=== PATIENT | male | born 1970 | race Caucasian/White ===

== ENCOUNTER 2016-09-20 12:01 | Emergency (ER) | payer BC, OTHER ==
[~2016-09-20] VITALS: Ht 175.3 cm; Wt 100.0 kg
[2016-09-20 12:32] VITALS: TEMP 36.5; Ht 175.3 cm; Wt 100.0 kg
--- NOTE | 2016-09-20 13:30 | DIAGNOSTIC IMAGING REPORT ---
LEFT KNEE 3 VIEWS CLINICAL HISTORY: left knee pain, anterior/lateral, dog ran into him trauma COMPARISON: None. DISCUSSION: Linear/cortical fracture lateral tibial plateau. Fracture extends to the articular services. All major osseous structures are unremarkable. Joint effusion is present. Patellofemoral joint is unremarkable. There is no evidence for soft tissue swelling. IMPRESSION: Vertical nondisplaced fracture lateral tibial plateau. Joint effusion. The above report was generated using voice recognition software. It may contain grammatical, syntax or spelling errors. Electronically signed by: Dorian Mayo M.D. 09/20/2016 1:29 PM Dictated Date/Time: 09/20/2016 1:28 PM
[2016-09-20] MEDS ORDERED: FENTANYL CITRATE INJ 50 MCG/1 ML 2 ML VIAL IV STA (13:45)
--- NOTE | 2016-09-20 14:24 | EMERGENCY ROOM VISIT NOTE ---
ED Visit Note First contact with patient: 12:49 CHIEF COMPLAINT: left knee pain HISTORY OF PRESENT ILLNESS: This 45-year-old male patient presents to the emergency department via EMS after sustaining an injury to the left knee. The patient states is 90 pound dog ran headfirst into his left knee from the side, and the patient reports hearing a popping sound. The patient states he pretty directly noticed a lump in the lateral knee, and began experiencing significant pain. The patient states he was able to lean against a wall, and slide down, however he was unable to bear weight or walk on the extremity. The patient contacted EMS, who was able to move him and get him to the emergency department. The patient denies any other injuries besides their knee. The patient does report swelling, but no bruising. There is pain on palpation of the lateral, posterior aspect of the knee. They rate the pain as constant, like a toothache and 3/10. The patient states they are not able to walk on it. No numbness or tingling. No previous injuries to this knee. No ankle, foot or hip pain. The patient did receive 50 g of fentanyl via IV prior to arrival from ALS provider. REVIEW OF SYSTEMS: A 6 system review of systems was completed with positives and pertinent negatives listed in the HPI. ALLERGIES: Etoposide MEDICATIONS: OTC Tylenol/ibuprofen PMH: Scratch fever, abscess of face, skull fracture, cancer SOCIAL HISTORY: Patient lives locally with his family. He currently smokes one to one and a half packs cigarettes per day. He denies drug or alcohol use. PHYSICAL EXAM: Vital Signs: Reviewed Nurse's notes, vital signs stable. GENERAL : 45-year-old male, no acute distress, but appears in pain, well-developed, well -nourished. MENTAL STATUS: Alert, oriented to person place and time, and cooperative. MUSCULOSKELETAL: The left knee is swollen. There is no ecchymosis. There is no joint effusion present. The patient is tender on the lateral, anterior, and posterior aspects of the knee. There is joint line tenderness. The patella does appropriately subluxate. Range of motion is full actively and passively, however flexion of the knee does cause increased discomfort. Strength of the quads and hamstrings is 5/5. Jackie's is negative. Yuki's and Anterior Drawer tests are negative. There is no discomfort or laxity with varus and valgus stressing. The foot and toes are warm and well- perfused. Dorsalis pedis pulse 2+. Sensation to pain and light touch is intact. Capillary refill less than 2 seconds. RADIOLOGY: X-Ray Left knee: DISCUSSION: Linear/cortical fracture lateral tibial plateau. Fracture extends to the articular services. All major osseous structures are unremarkable. Joint effusion is present. Patellofemoral joint is unremarkable. There is no evidence for soft tissue swelling. IMPRESSION: Vertical nondisplaced fracture lateral tibial plateau. Joint effusion. CT Scan Left knee: FINDINGS: Vertical fracture of the lateral tibial plateau. The fracture extends to the articular surface. Fracture extends from the anterior to posterior margin of the lateral tibial plateau. Lateral aspect of the fracture shows no evidence for depression. Maximum separation is 2 mm posteriorly. This progression is made to the anterior aspect of the tibial plateau there is a depressed component demonstrating a maximum depression of 4 mm. The depressed region measures 1.4 x 1.6 cm in maximum cross-sectional region. There is no extension to the tibial spines. A loose body within the joint is not appreciated. All remaining osseous structures are unremarkable. Joint effusion is present with a fat fluid level. IMPRESSION: 1. Vertical fracture lateral tibial plateau extending from the anterior to posterior margin of the tibial plateau. 2. Posterior aspect of the fracture demonstrates 2 mm of separation. 3. The anterior margin of the fracture demonstrates focal depression of 4 mm, with a cross-sectional area of depression of 1.4 x 1.6 cm. 4. No additional bony abnormality. 5. No significant loose bodies within the joint although the fracture is somewhat comminuted at its anterior aspect EMERGENCY DEPARTMENT COURSE: I examined the patient. X-rays of the left knee were reviewed by myself and read by radiology and reveal vertical, nondisplaced fracture of the lateral tibial plateau which extends to the articular surfaces. The patient was given a repeat dose of 50 g of fentanyl via IV at this time. I did discuss the case with Dr. Carter at approximately 13:55. He recommended CT scan to verify that the fracture is nondisplaced. He states we should place the patient in a knee immobilizer and advised him no weightbearing on the left extremity. He states he will follow up outpatient with the patient on Thursday. I did order CT scan and results are as described previously. Dr. Carter states CT scan will not alter the course of treatment at this time. The patient was placed in a knee immobilizer under my direction and the position was satisfactory. The patient was instructed on the use of crutches. The patient was discharged home in good condition. I did verify with PDMP prior to prescribing narcotics. The patient has no significant history over the past 3 years. I did receive a phone call from [facility] pharmacy in [place] after discharge the patient. They state they do not have record of the patient and the patient does not have medical insurance to pay for his narcotic prescription. They state they have a policy that they will not fill narcotic prescriptions in these cases. The patient did request prescription of OxyIR to be sent to [facility] in [place]. I did send this prescription. DIFFERENTIAL DIAGNOSIS: Patellar fracture, distal femur fracture, proximal tibia fracture, tibial plateau fracture, fibular fracture, sprain or strain of ligaments or tendons of the knee, knee contusion, and others. DIAGNOSIS: Left tibial plateau fracture DISCHARGE INSTRUCTIONS: ORTHOPEDIC INSTRUCTIONS: DO NOT drive, drink alcohol, operate machinery, or perform dangerous activities today. You were given medications in the ER that can affect your ability to safely function or operate a vehicle. Oxycodone (OxyIR) 5mg: Take 1-2 pills every four hours as needed for breakthrough pain. Avoid alcohol, operating machinery or dangerous equipment, working on ladders or roofs, DRIVING, or situations where being under the influence may be dangerous. It is recommended to use an [id number]-vopdlhu stool softener such as Colace, 100mg twice daily while taking this medication to avoid constipation. Ibuprofen(Motrin, Advil) may be used for fever or pain. Use 600mg every six hours as needed. Take with food. Avoid using more than 2400mg in a 24 hour period. Do not use 2400mg per day for more than three consecutive days without physician direction. Prolonged inappropriate use can lead to stomach upset or ulcers. (AND/OR) Acetaminophen(Tylenol) may be used for fever or pain. Use 1000mg every six hours as needed. Avoid using more than 4000mg in a 24 hour period. Ice compresses for 20 minutes at a time four times daily for 2-3 days. Use the crutches as instructed. NO WEIGHT BEARING UNTIL SEEN AND CLEARED BY ORTHOPEDICS. Rest and elevate your injury. Do not get the splint wet. If your splint feels excessively tight, you have worsening pain, develop numbness or tingling, or your digits appear blue, loosen the jonatan wrap. Then reapply the jonatan wrap gently without removing the splint. If your symptoms are not quickly relieved return to the ER for re- evaluation. Return to the ER immediately for any numbness, tingling, severe pain, extreme swelling in the extremity or as needed. Call [facility], [phone], on Thursday to arrange follow up for your injury. Follow-up with your primary care physician in 2 to 3 days for a recheck of your current condition. Problem List Medical Problems: (1) History of sinus cancer Status: Resolved Current/Historical Medications Scheduled PRN Oxycodone Ir (Roxicodone Ir), 1-2 TAB PO Q4-6H PRN for Pain Allergies Coded Allergies: Etoposide (Verified Allergy, Unknown, SHORTNESS OF BREATH, 09/20/14) Vital Signs Date Time Temp Pulse Resp B/P (MAP) Pulse Ox O2 Delivery O2 Flow Rate FiO2 09/20/16 15:44 84 18 120/64 94 09/20/16 13:58 70 109/71 94 Room Air 09/20/16 12:32 36.5 75 18 114/73 94 Room Air Medications Administered Medications (Trade) Dose Ordered Sig/Maki Route Start Time Stop Time Status Last Admin Dose Admin Fentanyl Citrate (Fentanyl Inj) 50 mcg NOW STAT IV 09/20/16 13:45 09/20/16 13:47 DC 09/20/16 13:57 50 MCG Departure Information Impression Primary Impression: Tibial plateau fracture, left Dispostion Home / Self-Care Condition GOOD Prescriptions Oxycodone Ir (Roxicodone Ir) 5 Mg Tab 1-2 TAB PO Q4-6H Y for Pain, #15 TAB For Initial Treatment Prov: Brit Hernandez PA-C 09/20/16 Referrals Andrea Hurtado D.O. (PCP) Matthew Carter M.D. Patient Instructions ED Fx Lower Ext, My [facility] Additional Instructions ORTHOPEDIC INSTRUCTIONS: DO NOT drive, drink alcohol, operate machinery, or perform dangerous activities today. You were given medications in the ER that can affect your ability to safely function or operate a vehicle. Oxycodone (OxyIR) 5mg: Take 1-2 pills every four hours as needed for breakthrough pain. Avoid alcohol, operating machinery or dangerous equipment, working on ladders or roofs, DRIVING, or situations where being under the influence may be dangerous. It is recommended to use an hxgh-rlf-jzvexmd stool softener such as Colace, 100mg twice daily while taking this medication to avoid constipation. Ibuprofen(Motrin, Advil) may be used for fever or pain. Use 600mg every six hours as needed. Take with food. Avoid using more than 2400mg in a 24 hour period. Do not use 2400mg per day for more than three consecutive days without physician direction. Prolonged inappropriate use can lead to stomach upset or ulcers. (AND/OR) Acetaminophen(Tylenol) may be used for fever or pain. Use 1000mg every six hours as needed. Avoid using more than 4000mg in a 24 hour period. Ice compresses for 20 minutes at a time four times daily for 2-3 days. Use the crutches as instructed. NO WEIGHT BEARING UNTIL SEEN AND CLEARED BY ORTHOPEDICS. Rest and elevate your injury. Do not get the splint wet. If your splint feels excessively tight, you have worsening pain, develop numbness or tingling, or your digits appear blue, loosen the jonatan wrap. Then reapply the jonatan wrap gently without removing the splint. If your symptoms are not quickly relieved return to the ER for re- evaluation. Return to the ER immediately for any numbness, tingling, severe pain, extreme swelling in the extremity or as needed. Call [facility], [phone], on Thursday to arrange follow up for your injury. Follow-up with your primary care physician in 2 to 3 days for a recheck of your current condition. Problem Qualifiers Primary Impression: Tibial plateau fracture, left Encounter type: initial encounter Fracture type: closed Qualified Codes: S82.142A - Displaced bicondylar fracture of left tibia, initial encounter for closed fracture
--- NOTE | 2016-09-20 14:44 | DIAGNOSTIC IMAGING REPORT ---
LEFT LOWER EXTREMITY WITHOUT CT DOSE: 482.70 mGy.cm HISTORY: Fracture left tibial plateau fracture TECHNIQUE: Multiaxial CT images of the left knee were performed and reformatted in the sagittal and coronal plane without the use of contrast. COMPARISON: None. FINDINGS: Vertical fracture of the lateral tibial plateau. The fracture extends to the articular surface. Fracture extends from the anterior to posterior margin of the lateral tibial plateau. Lateral aspect of the fracture shows no evidence for depression. Maximum separation is 2 mm posteriorly. This progression is made to the anterior aspect of the tibial plateau there is a depressed component demonstrating a maximum depression of 4 mm. The depressed region measures 1.4 x 1.6 cm in maximum cross-sectional region. There is no extension to the tibial spines. A loose body within the joint is not appreciated. All remaining osseous structures are unremarkable. Joint effusion is present with a fat fluid level. IMPRESSION: 1. Vertical fracture lateral tibial plateau extending from the anterior to posterior margin of the tibial plateau. 2. Posterior aspect of the fracture demonstrates 2 mm of separation. 3. The anterior margin of the fracture demonstrates focal depression of 4 mm, with a cross-sectional area of depression of 1.4 x 1.6 cm. 4. No additional bony abnormality. 5. No significant loose bodies within the joint although the fracture is somewhat comminuted at its anterior aspect The above report was generated using voice recognition software. It may contain grammatical, syntax or spelling errors. Electronically signed by: Dorian Mayo M.D. 09/20/2016 2:43 PM Dictated Date/Time: 09/20/2016 2:36 PM
[2016-09-20] MEDS ORDERED: OXYC1TAB3 PO ×2 (15:14→17:08)
[2016-09-20 15:44] VITALS: BP 120/64; PULSE 84; O2SAT 94
== END 2016-09-20 15:45 | disposition home or self-care (01) ==
LOC: EDBD 12:01 → C.EDD 12:03
DX: S82.255A Nondisplaced comminuted fracture of shaft of left tibia, initial encounter for closed fracture (principal); W54.1XXA Struck by dog, initial encounter; F17.200 Nicotine dependence, unspecified, uncomplicated; Z87.820 Personal history of traumatic brain injury; Z86.19 Personal history of other infectious and parasitic diseases; Z85.9 Personal history of malignant neoplasm, unspecified; Z88.8 Allergy status to other drugs, medicaments and biological substances